=== PATIENT | female | born 2005 | race Caucasian/White ===

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

== ENCOUNTER 2024-08-19 18:30 | Emergency (ER) | payer SELFPAY ==
[~2024-08-19] VITALS: Ht 154.9 cm; Wt 95.7 kg
[~2024-08-19 18:30] MED LIST: IBUP-2029 MT
[2024-08-19 18:42] VITALS: O2SAT 98
[2024-08-19] MEDS ORDERED: IBUP-2029 MT (19:34)
[2024-08-19 20:23] VITALS: BP 136/90; PULSE 79; RESP 14; TEMP 36.8; O2SAT 98
== END 2024-08-19 20:34 | disposition home or self-care (01) ==
LOC: ER 18:30
DX: S90.122A Contusion of left lesser toe(s) without damage to nail, initial encounter (principal); R03.0 Elevated blood-pressure reading, without diagnosis of hypertension; Z79.899 Other long term (current) drug therapy; Y93.H1 Activity, digging, shoveling and raking; Y93.89 Activity, other specified; Y92.89 Other specified places as the place of occurrence of the external cause; Y99.8 Other external cause status
CPT/HCPCS: 73620; 99283; Z7610